=== PATIENT | male | born 1980 | race Caucasian/White ===

== ENCOUNTER 2017-12-02 11:17 | Emergency (ER) | payer MEDICARE, OTHER ==
[~2017-12-02] VITALS: Ht 154.9 cm; Wt 88.0 kg
[2017-12-02 11:37] VITALS: BP 127/87
--- NOTE | 2017-12-02 11:45 | NUR ---
PT C/O LOWER RT SIDE BACK PAIN WITH SLIGHT RADIATION TO RT HIP. PT REPORTS RECENTLY MOVING AND LIFTING HEAVY OBJECTS, ALSO SLEEPING ON AN AIR MATTRES. DENIES INJURY. ADMITS TO HAVING CHRONIC BACK PAIN IN MEDICAL HISTORY. AMBULATES WITH NORMAL GAIT OT CHAIR A, NAD NOTED/STATED OTHERWISE.
[2017-12-02] MEDS ORDERED: CYCLOBENZAPRINE 10 MG TAB PO ONE (12:20)
[2017-12-02] MEDS ORDERED: DEXAMETHASONE 10 MG/ML VIAL IM ONE (12:20)
[2017-12-02] MEDS ORDERED: NAPROXEN 500 MG TAB PO ONE (12:28)
[2017-12-02 12:51] VITALS: BP 125/78
--- NOTE | 2017-12-02 12:53 | NUR ---
Patient discharged with v/s stable. Written and verbal after care instructions given and explained. Patient alert, oriented and verbalized understanding of instructions. Ambulatory with steady gait. All questions addressed prior to discharge. ID band removed. Patient advised to follow up with PMD. Rx of NORCO, FLEXERIL,NAPROSYN given. Patient educated on indication of medication including possible reaction and side effects. Opportunity to ask questions provided and answered.
[2017-12-02] MEDS ORDERED: NAPROXEN 500 MG TAB PO SCH (21:00)
== END 2017-12-02 12:53 | disposition home or self-care (01) ==
LOC: MED 11:17
DX: M47.896 Other spondylosis, lumbar region (principal); Z88.0 Allergy status to penicillin; Z91.040 Latex allergy status
CPT/HCPCS: 96372; 99283; J1100